=== PATIENT | male | born 1995 | race American Indian/Alaskan Native ===

== ENCOUNTER 2016-12-09 22:58 | Emergency (ER) | payer SELFPAY ==
[2016-12-10 00:58] LABS: Basophils % (Auto) 0.6 % (0.0-1.8); Eosinophils % (Auto) 4.7 % (0.0-4.3); Hematocrit 40.2 % (35.5-45.6); Hemoglobin 12.9 gm/dl (11.8-15.2); Mean Corpuscular HGB Conc 32 % (32-34); Mean Corpuscular Volume 76 fl (84-94); Platelet Count 255 K/mm3 (140-440); Red Blood Count 5.26 M/mm3 (3.65-5.03); Red Cell Distribution Width 15.8 % (13.2-15.2); White Blood Count 5.9 K/mm3 (4.5-11.0)
[2016-12-10 00:59] LABS: Mean Corpuscular Hemoglobin 25 pg (28-32)
[2016-12-10 01:04] LABS: Blood Urea Nitrogen 12 mg/dL (9-20); Calcium 9.2 mg/dL (8.4-10.2); Carbon Dioxide 27 mmol/L (22-30); Glucose 90 mg/dL (75-100)
[2016-12-10 01:05] LABS: Anion Gap 16 mmol/L; Chloride 98.5 mmol/L (98-107); Potassium 4.6 mmol/L (3.6-5.0); Sodium 137 mmol/L (137-145)
[2016-12-10 05:10] VITALS: BP 130/83
== END 2016-12-10 00:27 | disposition left against medical advice (07) ==
LOC: ED 22:58
DX: K92.1 Melena (principal); Z53.21 Procedure and treatment not carried out due to patient leaving prior to being seen by health care provider
CPT/HCPCS: 36415; 80048; 85025